=== PATIENT | male | born 1985 | race Caucasian/White ===

== ENCOUNTER 2017-05-04 19:29 | Emergency (ER) | payer SELFPAY ==
[2017-05-04] MEDS ORDERED: Sodium Chloride 0.9% 10 ML Syringe FLUSH PRN (19:37)
[2017-05-04] MEDS ORDERED: Sodium Chloride 0.9% 1,000 ML IV SCH (19:45)
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
[2017-05-04 20:14] LABS: ACETAMINOPHEN 0 ug/mL (10-30)
--- NOTE | 2017-05-04 21:04 | CT ---
Head CT Technique: Multiple axial sections through the brain were obtained. Intravenous contrast was not utilized. Comparison: No previous intracranial imaging. Findings: Ventricles along with basal cisterns and sulci over the convexities are within normal limits for the patient's age. No abnormal parenchymal densities are seen. No evidence of intracranial hemorrhage. No midline shift or mass effect is seen. Bone window settings were reviewed which shows no acute calvarial abnormality. Visualized sinuses are clear. Impression: 1. No abnormality is identified on noncontrast head CT exam. Diagnostic code #1
== END 2017-05-04 21:30 | disposition home or self-care (01) ==
LOC: JD.ED 19:29
DX: R41.0 Disorientation, unspecified (principal); F17.210 Nicotine dependence, cigarettes, uncomplicated; Z79.899 Other long term (current) drug therapy
CPT/HCPCS: 36415; 70450; 80053; 84484; 85025; 93005; 96360; 99285; G0480; J7040; J7050; 93010; 99284